=== PATIENT | male | born 1975 | race Caucasian/White ===

== ENCOUNTER 2017-12-18 15:44 | Emergency (ER) | payer OTHER ==
[~2017-12-18] VITALS: Ht 180.3 cm; Wt 113.4 kg
[~2017-12-18 15:44] MED LIST: AMPDEX10 PO; FLUT.05NI; LORA10ER; LORA10ER PO; SULTRIDS PO; Strattera80 MG PO
[2017-12-18] MEDS ORDERED: Ultram50 MG PO (17:39)
[2017-12-18] MEDS ORDERED: CRUTCH4 XX (17:40)
== END 2017-12-18 17:45 | disposition home or self-care (01) ==
LOC: ER 15:44
DX: S93.402A Sprain of unspecified ligament of left ankle, initial encounter (principal); X50.9XXA Other and unspecified overexertion or strenuous movements or postures, initial encounter; Z88.0 Allergy status to penicillin; Z88.8 Allergy status to other drugs, medicaments and biological substances; Z88.1 Allergy status to other antibiotic agents; Z79.899 Other long term (current) drug therapy; Z87.891 Personal history of nicotine dependence
CPT/HCPCS: 73610

== ENCOUNTER 2021-05-17 05:15 | Emergency (ER) | payer BC ==
[~2021-05-17] VITALS: Ht 177.8 cm; Wt 120.2 kg
[~2021-05-17 05:15] MED LIST changes: +CRUTCH4 XX; +Ultram50 MG PO
== END 2021-05-17 10:15 | disposition home or self-care (01) ==
LOC: ER 05:15
DX: T78.3XXA Angioneurotic edema, initial encounter (principal); Z88.0 Allergy status to penicillin; Z88.6 Allergy status to analgesic agent; Z88.1 Allergy status to other antibiotic agents; Z88.8 Allergy status to other drugs, medicaments and biological substances; Z87.891 Personal history of nicotine dependence
CPT/HCPCS: 96372; 96374; 96375; 99284-25; J0171; J1200; J2930